=== PATIENT | female | born 1945 | race Caucasian/White ===

== ENCOUNTER → 2017-12-23 | Outpatient (CLI) | payer MEDICARE, MEDICAID ==
--- NOTE | 2017-12-23 16:47 | RADIOLOGY REPORT (SQ) ---
EXAM DESCRIPTION: CT LUMBAR SPINE WITH COMPLETED DATE/TIME: 12/23/2017 1:28 pm REASON FOR STUDY: PAIN (R52) M54.6 PAIN IN THORACIC SPINE R10.2 PELVIC AND PERINEAL PAIN R52 PAIN , UNSPECIFIED COMPARISON: MRI lumbar spine 09/06/2007 CT abdomen pelvis 01/02/2009 CT pelvis with IV contrast 12/23/2017 TECHNIQUE: Axial images acquired through the lumbar spine with intravenous contrast. Images reviewe d with lung, soft tissue and bone windows. Reconstructed coronal and sagittal MPR images reviewed. All images stored on PACS. Patient was injected with 100 mL of Isovue 370 IV, creatinine 0.7. All CT scanners at this facility use dose modulation, iterative reconstruction, and/or weight based d osing when appropriate to reduce radiation dose to as low as reasonably achievable (ALARA). [facility]: Dose Right [facility]: CareDose [facility]: Dose Right [facility]: Teradose 4D [facility]: [employer] RADIATION DOSE: 25 mGy. LIMITATIONS: None. FINDINGS: SEGMENTATION: Normal. No transitional anatomy. ALIGNMENT: Degenerative convex leftward lumbar curvature VERTEBRAL BODIES: No fractures. No dislocation. No acute findings. DISCS: There is diffuse disc space loss of height with vacuum disc phenomenon throughout the lumbar s pine. Individual disc levels are as follows: T10-11 disc space loss of height. No central stenosis. Moderate bilateral foraminal narrowing from facet hypertrophy. T11-12: Borderline central canal narrowing from broad diffuse posterior disc bulge and moderate bila teral facet and ligament hypertrophy. Moderate bilateral foraminal narrowing. T12-L1: Borderline central canal narrowing from broad diffuse posterior disc bulge and bony spurring and mild bilateral facet and ligament hypertrophy. No significant foraminal narrowing. L1-2: Mild central canal stenosis results from broad diffuse posterior disc bulge and bony spurring along with moderate bilateral facet and ligament hypertrophy. Asymmetric flattening of the thecal sa c along the left lateral recess containing the proximal L2 nerve root axial image 39. Moderate bilat eral foraminal narrowing. L2-3: Moderate central canal stenosis results from broad diffuse posterior disc bulge and bony spurr ing along with moderate right and mild left facet hypertrophy. Asymmetric flattening of the thecal s ac along the right lateral recess containing the proximal L3 nerve roots. High-grade right, mild lef t foraminal narrowing. L3-4: High-grade central canal stenosis from broad diffuse disc bulge and bony spurring and moderate ligamentum flavum thickening and facet hypertrophy. High-grade right, moderate left foraminal narro wing. L4-5: Broad diffuse posterior disc bulge and bony spurring with bulky bilateral facet and ligament h ypertrophy causes moderate central canal stenosis. Moderate right, moderate to high-grade left jonathon inal narrowing. L5-S1: No central canal narrowing. Bilateral facet hypertrophy. Mild bilateral foraminal narrowing . PEDICLES, TRANSVERSE PROCESSES: No fractures. No dislocation. No acute findings. FACETS, POSTERIOR ELEMENTS: No fractures. No dislocation. HARDWARE: None in the spine. VISUALIZED RIBS: No fractures. SOFT TISSUES: No significant or acute finding in adjacent soft tissues. OTHER: No other significant finding. IMPRESSION: Multilevel degenerative disc changes as above. Multilevel central and foraminal stenosi s TECHNICAL DOCUMENTATION: JOB ID: [id number] Quality ID # [id number]: Final reports with documentation of one or more dose reduction techniques (e.g., Au tomated exposure control, adjustment of the mA and/or kV according to patient size, use of iterative reconstruction technique) 2010 [employer]- All Rights Reserved
--- NOTE | 2017-12-23 16:51 | RADIOLOGY REPORT (SQ) ---
EXAM DESCRIPTION: CT PELVIS WITH COMPLETED DATE/TIME: 12/23/2017 1:28 pm REASON FOR STUDY: PAIN (R52) M54.6 PAIN IN THORACIC SPINE R10.2 PELVIC AND PERINEAL PAIN R52 PAIN , UNSPECIFIED COMPARISON: None. TECHNIQUE: CT scan of the pelvis performed with IV contrast. Images reviewed with soft tissue and b one windows. Reconstructed coronal and sagittal MPR images reviewed. All images stored on PACS. Patient injected with 100 mL Isovue 370. Creatinine 0.[address] scanners at this facility use dose modulation, iterative reconstruction, and/or weight based d osing when appropriate to reduce radiation dose to as low as reasonably achievable (ALARA). [facility]: Dose Right [facility]: CareDose [facility]: Dose Right [facility]: Teradose 4D [facility]: [employer] RADIATION DOSE: CT Rad equipment meets quality standard of care and radiation dose reduction techniq ues were employed. CTDIvol: 23.7 - 28.9 mGy. DLP: 2633 mGy-cm. mGy. LIMITATIONS: None. FINDINGS: No free pelvic fluid. No masses or adenopathy. Normal size postmenopausal female organs. Sigmoid colon diverticuli without CT signs of acute diverticulitis. Distal abdominal aorta, iliac vessels normal caliber. Lower poles of the kidneys were included in the field of view, there is a 2 cm right lower pole parap elvic cyst, and a 12 mm left lower pole intrarenal stone, measuring 1,150 Hounsfield units. No gross hydronephrosis or hydroureter. Bone windows demonstrate advanced degenerative disc changes in the lower lumbar spine. There is adva nced right hip osteoarthritis, with a [id number] appearance, subcortical cyst formation, bulky bony spurring along the lateral acetabular rim and right femoral head, and diffuse right hip synovial sandi cifications/ossification. Mild changes of joint space narrowing left hip without bulky bony spurring. Remainder of the bony pelvis is osteopenic with mild vacuum phenomenon in the SI joints. No abnormal enhancement post contrast. IMPRESSION: Advanced osteoarthritis right hip without fracture TECHNICAL DOCUMENTATION: JOB ID: [id number] Quality ID # [id number]: Final reports with documentation of one or more dose reduction techniques (e.g., Au tomated exposure control, adjustment of the mA and/or kV according to patient size, use of iterative reconstruction technique) 2010 [employer]- All Rights Reserved
== END ==
LOC: RAD 12:11
PROVIDERS: ATTEND Nurse Practitioner Acute Care
DX: M54.6 Pain in thoracic spine (principal); R10.2 Pelvic and perineal pain; N18.9 Chronic kidney disease, unspecified; D64.9 Anemia, unspecified; M16.12 Unilateral primary osteoarthritis, left hip; M48.061 Spinal stenosis, lumbar region without neurogenic claudication
CPT/HCPCS: 72132; 72193; 81001; 82565; 87086